=== PATIENT | female | born 1990 | race African-American/Black ===

== ENCOUNTER 2019-09-21 10:33 | Emergency (ER) | payer OTHER ==
[2019-09-21 11:08] VITALS: TEMP 98.2; BMI 20.2
[2019-09-21] MEDS ORDERED: FAMOTIDINE 20 MG/50 ML IVPB 20 MG/50 ML MG IVPB ONE ×2 (11:49→12:06)
[2019-09-21] MEDS ORDERED: DEXAMETHASONE SOD PHOSPHATE 10 MG/1 ML VIAL IVPUSH ONE (11:50)
[2019-09-21] MEDS ORDERED: SODIUM CHLORIDE 0.9% 500 ML INFUS.BAG IV ONE (11:50)
[2019-09-21] MEDS ORDERED: DEXAMETHASONE SOD PHOSPHATE 10 MG/1 ML VIAL ONE (12:07)
--- NOTE | 2019-09-21 13:44 | PDOC ---
History of Present Illness - General Chief Complaint: Allergic Reaction Stated Complaint: EDEMA Time Seen by Provider: 09/21/19 11:23 History Source: Patient Exam Limitations: No Limitations - History of Present Illness Initial Comments: 09/21/19 13:39 29-year-old female denies past medical history presents complaining of itching to scalp, forehead and bilateral lower eyelid swelling since yesterday. Patient went to the hair salon 2 to 3 days ago and had black hair dye applied. She reports similar symptoms to scalp 3 years ago after black hair dye which resolved with p.o. Benadryl. She has taken 8 tablets of 25 mg Benadryl throughout the past 24 hours without relief of symptoms. Denies shortness of breath, difficulty speaking, nausea, vomiting, chest pain, vision changes or any other complaints. ROS: GENERAL/CONSTITUTIONAL: Forehead swelling, scalp itching, no fever, chills, weakness, dizziness HEAD, EYES, EARS, NOSE AND THROAT: Bilateral lower eyelid swelling, no changes in vision, No ear pain or discharge, No sore throat CARDIOVASCULAR: No chest pain RESPIRATORY: No shortness of breath or cough GASTROINTESTINAL: No pain, nausea, vomiting, diarrhea or constipation GENITOURINARY: No dysuria MUSCULOSKELETAL: No neck or back pain SKIN: Rash to scalp NEUROLOGIC: No headache, vertigo, loss of consciousness, or loss of sensation PE: GENERAL: well-appearing, speaking full sentences, NAD HEAD: Moderate swelling to forehead noted, NCAT EYES: Bilateral lower eyelid swelling, pupils equal, round and reactive to light , sclera anicteric, conjunctiva clear ENT: pharynx: no erythema, no exudate, uvula midline NECK: supple CHEST: nontender RESP: clear, no w/r/r CARDIO: rrr, no m/g/r ABD: +BS, soft, nontender, non distended BACK: no midline spinal ttp, no CVAT EXTREMITIES: Normal range of motion, no edema NEUROLOGICAL: Normal speech, normal gait SKIN: Scattered raised areas throughout scalp and behind ears, warm, Dry Past History - Past Medical History Allergies/Adverse Reactions: Allergies Allergy/AdvReac Type Severity Reaction Status Date / Time No Known Allergies Allergy Verified 09/21/19 11:03 COPD: No - Immunization History Immunization Up to Date: Yes - Psycho Social/Smoking Cessation Hx Smoking History: Current every day smoker Number of Cigarettes Smoked Daily: 10 Information on smoking cessation initiated: No Hx Alcohol Use: Yes (DAILY) Drug/Substance Use Hx: Yes (MARIJUANA) *Physical Exam - Vital Signs Last Vital Signs Temp Pulse Resp BP Pulse Ox 98.2 F 78 17 119/68 100 09/21/19 10:58 09/21/19 10:58 09/21/19 10:58 09/21/19 10:58 09/21/19 10:58 ED Treatment Course - Medications Given in the ED: ED Medications Discontinued Medications Generic Name Dose Route Start Last Admin Trade Name Mayank PRN Reason Stop Dose Admin Dexamethasone Sodium Phosphate 10 mg 09/21/19 11:50 09/21/19 12:17 Decadron Injection - IVPUSH 09/21/19 11:51 10 mg ONCE ONE Administration Diphenhydramine HCl 50 mg 09/21/19 11:49 09/21/19 12:17 Benadryl Injection - IVPUSH 09/21/19 11:50 50 mg ONCE ONE Administration Famotidine/Sodium Chloride 20 mg in 50 mls @ 100 mls/hr 09/21/19 11:49 12:17 Pepcid 20 Mg Premixed Ivpb - IVPB 09/21/19 12:18 100 mls/hr ONCE ONE Administration Sodium Chloride 1,000 ml 09/21/19 11:50 09/21/19 12:17 Normal Saline - IV 09/21/19 11:51 1,000 ml ONCE ONE Administration Medical Decision Making - Medical Decision Making 09/21/19 13:43 29-year-old female presents with itchy rash to scalp, swelling to mid forehead and bilateral lower eyelids since yesterday status post black hair dye application 2 to 3 days ago. We will treat for allergic reaction IV Benadryl IV Pepcid IV Decadron IV fluids Reassess 09/21/19 14:25 Patient does not feel better despite administering above medications Discussed case with Dr. Mcpherson and signed out to main ED Ordered Benadryl 50 mg IV Discharge - Discharge Information Problems reviewed: Yes Clinical Impression/Diagnosis: Allergic reaction Qualifiers: Encounter type: initial encounter Qualified Code(s): T78.40XA - Allergy, unspecified, initial encounter Condition: Stable - Follow up/Referral - Patient Discharge Instructions - Post Discharge Activity
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
[2019-09-21 15:02] VITALS: BP 124/79; PULSE 74
== END 2019-09-21 15:09 | disposition home or self-care (01) ==
LOC: JER 10:33 → JERFT 10:33 → JER 15:09
PROC: 3E033GC Introduction of Other Therapeutic Substance into Peripheral Vein, Percutaneous Approach (ICD-10-PCS; principal; 2019-09-21)
PROC: 3E033GC Introduction of Other Therapeutic Substance into Peripheral Vein, Percutaneous Approach (ICD-10-PCS; 2019-09-21)
PROC: 3E0333Z Introduction of Anti-inflammatory into Peripheral Vein, Percutaneous Approach (ICD-10-PCS; 2019-09-21)
DX: L29.8 Other pruritus (principal); T78.49XA Other allergy, initial encounter; T49.4X5A Adverse effect of keratolytics, keratoplastics, and other hair treatment drugs and preparations, initial encounter; Y92.038 Other place in apartment as the place of occurrence of the external cause
CPT/HCPCS: 99281-25; J1100

== ENCOUNTER 2020-06-22 14:00 | Emergency (ER) | payer OTHER ==
--- OUTSIDE RECORDS SUMMARY | 2020-06-22 14:11 | XMS ---
:1990 Author Organization [facility] Support Name Relationship Address Phone UE Unavailable Unavailable Unavailable CULLEN ALBERT OTHER RELATIONSHIP [id number] [place] [address] Re-disclosure Warning The records that you are about to access may contain information from federally- assisted alcohol or drug abuse programs. If such information is present, then the following federally mandated warning applies: This information has been disclosed to you from records protected by federal confidentiality rules (42 CFR part 2). The federal rules prohibit you from making any further disclosure of this information unless further disclosure is expressly permitted by the written consent of the person to whom it pertains or as otherwise permitted by 42 CFR part 2. A general authorization for the release of medical or other information is NOT sufficient for this purpose. The Federal rules restrict any use of the information to criminally investigate or prosecute any alcohol or drug abuse patient.The records that you are about to access may contain highly sensitive health information, the redisclosure of which is protected by Article 27-F of the [facility] Public Health law. If you continue you may haveaccess to information: Regarding HIV / AIDS; Provided by facilities licensed or operated by the [facility] Office of Mental Health; or Provided by the [facility] Office for People With Developmental Disabilities. If such information is present, then the following [facility] mandated warning applies: This information has been disclosed to you from confidential records which are protected by state law. State law prohibits you from making any further disclosure of this information without the specific written consent of the person to whom it pertains, or as otherwise permitted by law. Any unauthorized further disclosure in violation of state law may result in a fine or half-way sentence or both. A general authorization for the release of medical or other information is NOT sufficient authorization for further disclosure. Insurance Providers Payer name Policy type Policy ID Covered Covered alliance party's Policy P girma / Coverage alliance party ID relationship to [facility] ormation type chávez [facility] [id number] Q [employer] [id number] SP [id number] Q MEDICAID [id number] SP [id number]
[2020-06-22] MEDS ORDERED: NAPROXEN 375 MG TABLET PO ONE (14:20)
[2020-06-22] MEDS ORDERED: CEPHALEXIN MONOHYDRATE 500 MG CAPSULE (UD) PO ONE (14:20)
[2020-06-22 14:24] VITALS: BP 115/75; PULSE 90; TEMP 98.2; BMI 20.9
[2020-06-22] MEDS ORDERED: DIPHTH,PERTUSS(ACELL),TET 0.5 ML DISP.SYRIN IM ONE (14:37)
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
== END 2020-06-22 15:25 | disposition home or self-care (01) ==
LOC: FER 14:00
PROC: 3E0234Z Introduction of Serum, Toxoid and Vaccine into Muscle, Percutaneous Approach (ICD-10-PCS; principal; 2020-06-22)
DX: T24.202A Burn of second degree of unspecified site of left lower limb, except ankle and foot, initial encounter (principal)
CPT/HCPCS: 90715; 99284-25

== ENCOUNTER 2022-06-12 22:56 | Emergency (ER) | payer OTHER ==
[2022-06-12 23:05] VITALS: BP 114/81; PULSE 109; RESP 19; TEMP 97.9; BMI 19.1
[2022-06-12] MEDS ORDERED: SODIUM CHLORIDE 0.9% 500 ML INFUS.BAG IV ONE (23:32)
[2022-06-12] MEDS ORDERED: ACETAMINOPHEN 1000 MG/100 ML BAG IVPB ONE (23:32)
[2022-06-12] MEDS ORDERED: ONDANSETRON 4 MG/2 ML VIAL IVPUSH ONE (23:32)
[2022-06-12] MEDS ORDERED: HALOPERIDOL LACTATE 5 MG/ML IM ONE (23:42)
[2022-06-13] MEDS ORDERED: HALOPERIDOL LACTATE 5 MG/ML ONE (00:27)
[2022-06-13] MEDS ORDERED: ACETAMINOPHEN INJECTION 100 ML IVPB ONE (00:27)
[2022-06-13] MEDS ORDERED: ONDANSETRON 4 MG/2 ML VIAL ONE (00:27)
[2022-06-13 01:30] LABS: HEMATOCRIT 30.1 % (32.4-45.2); HEMOGLOBIN 9.1 GM/dL (10.7-15.3); MCH 20.4 pg (25.7-33.7); MCHC 30.4 g/dl (32.0-36.0); MEAN CELL VOLUME 67.3 fl (80-96); MEAN PLT VOLUME 7.6 fl (7.5-11.1); PLATELET COUNT 415 10^3/uL (134-434); RBC 4.48 M/mm3 (3.60-5.2); RDW 20.8 % (11.6-15.6)
[2022-06-13 01:34] LABS: ALBUMIN 4.7 g/dl (3.4-5.0); BLOOD UREA NITROGEN 8.9 mg/dL (7-18); CALCIUM 9.8 mg/dL (8.5-10.1); MAGNESIUM 1.7 mg/dL (1.8-2.4)
[2022-06-13 01:37] LABS: CREATININE 0.9 mg/dL (0.55-1.3)
[2022-06-13 01:39] LABS: BILIRUBIN,TOTAL 0.7 mg/dL (0.2-1); TOT PROT 9.6 g/dl (6.4-8.2)
[2022-06-13 02:20] LABS: HCG,QUALITATIVE URINE Negative
[2022-06-13 02:21] LABS: EPI CELLS 5 /uL (0-25.1); HYALINE CASTS 1 /uL (0-3.1); PH,URINE 5.5 (5.0-8.0); URINE APPEARANCE CLEAR; URINE BACTERIA 13 /uL (0-1359); URINE BILIRUBIN NEGATIVE (NEGATIVE); URINE COLOR YELLOW; URINE GLUCOSE (UA) NEGATIVE (NEGATIVE); URINE KETONE TRACE (NEGATIVE); URINE LEUK ESTERASE NEGATIVE (NEGATIVE); URINE NITRITE NEGATIVE (NEGATIVE); URINE PROTEIN 2+ (NEGATIVE); URINE RBC 2281 /uL (0-23.9); URINE UROBILINOGEN 0.2 mg/dL (0.2-1.0); URINE WBC 12 /uL (0-25.8)
[2022-06-13 03:35] LABS: ANISOCYTOSIS 3+; MACROCYTOSIS 0; ROULEAU 1+; TARGET CELLS 2+
== END 2022-06-13 02:32 | disposition left against medical advice (07) ==
LOC: JER 22:56
PROC: 3E033GC Introduction of Other Therapeutic Substance into Peripheral Vein, Percutaneous Approach (ICD-10-PCS; principal; 2022-06-12)
PROC: 3E0333Z Introduction of Anti-inflammatory into Peripheral Vein, Percutaneous Approach (ICD-10-PCS; 2022-06-12)
PROC: 3E023NZ Introduction of Analgesics, Hypnotics, Sedatives into Muscle, Percutaneous Approach (ICD-10-PCS; 2022-06-12)
DX: R11.10 Vomiting, unspecified (principal)
CPT/HCPCS: 36415; 80053; 81003; 83690; 83735; 84703; 85025; 99284-25